=== PATIENT | male | born 1985 | race Hispanic/Latino ===

== ENCOUNTER 2020-01-29 01:39 | Emergency (ER) | payer BC, SELFPAY ==
[2020-01-29] MEDS ORDERED: LIDOCAINE 1% W/EPI 1:100,000 MDV 20 ML VIAL ONE (02:04)
[2020-01-29] MEDS ORDERED: NEOMYCIN/BAC/POLY OPTH 3.5GM ONE (02:04)
--- NOTE | 2020-01-29 03:25 | ER ---
Nurse's Notes [facility] Name: Armand Rizvi Age: 34 yrs Sex: Male : 1985 Arrival Date: 01/29/2020 Time: 01:47 Bed 19 Private MD: Diagnosis: Laceration without foreign body of other part of head-brow Presentation: 01/28 01:48 Chief complaint: EMS states: they were toned out for report of pt with head injury from bb fall with lac to left brow pt unsure is he had LOC. Coronavirus screen: At this time, the client does not indicate any symptoms associated with coronavirus-19. Ebola Screen: No symptoms or risks identified at this time. Initial Sepsis Screen: Does the patient meet any 2 criteria? No. Patient's initial sepsis screen is negative. Does the patient have a suspected source of infection? No. Patient's initial sepsis screen is negative. Risk Assessment: Do you want to hurt yourself or someone else? Patient reports no desire to harm self or others. Onset of symptoms was January 29, 2020. 01:48 Method Of Arrival: EMS: [facility] 01:48 Acuity: IZA 3 bb Historical: - Allergies: 01:51 No Known Allergies; bb - Home Meds: 01:51 None [Active]; bb - PMHx: 01:51 None; bb - PSHx: 01:51 Hernia repair; bb - Immunization history:: Adult Immunizations up to date, Last tetanus immunization: unknown. - Social history:: Smoking status: unknown Patient uses alcohol, occasionally. - Family history:: not pertinent. Screenin:22 Abuse screen: Denies threats or abuse. Denies injuries from another. Nutritional wh screening: No deficits noted. Tuberculosis screening: No symptoms or risk factors identified. Fall Risk None identified. Assessment: 02:21 General: Appears in no apparent distress. well groomed, Behavior is calm, cooperative, wh appropriate for age. General: Smells of alcohol. Pain: Denies pain. Neuro: Level of Consciousness is awake, alert, obeys commands, Oriented to person, place, time, situation, Appropriate for age. Cardiovascular: Capillary refill < 3 seconds. Respiratory: Airway is patent Respiratory effort is even, unlabored, Respiratory pattern is regular, symmetrical. GI: Abdomen is flat, non-distended. : No signs and/or symptoms were reported regarding the genitourinary system. EENT: No signs and/or symptoms were reported regarding the EENT system. Derm: Skin is intact, is healthy with good turgor, Skin is pink, warm \T\ dry. normal. Musculoskeletal: Circulation, motion, and sensation intact. Injury Description: Laceration sustained to middle aspect of left eyebrow is clean, 2.6 to 7.5 cm long. 02:40 Reassessment: Girlfriend notified [place] [employer] for a report. 03:30 Reassessment: Patient appears in no apparent distress at this time. No changes from previously documented assessment. Patient and/or family updated on plan of care and expected duration. Pain level reassessed. Patient is alert, oriented x 3, equal unlabored respirations, skin warm/dry/pink. MD put in DC order prior to suture repair. Vital Signs: 01:48 BP 135 / 94; Pulse 94; Resp 16 S; Temp 98(O); Pulse Ox 97% on R/A; Weight 79.38 kg (R); Height 5 ft. 8 in. (172.72 cm) (R); Pain 3/10; 02:22 BP 127 / 87; Pulse 92; Resp 18; Pulse Ox 99% on R/A; wh 03:45 BP 115 / 64; Pulse 93; Resp 18; Pulse Ox 94% on R/A; 01:48 Body Mass Index 26.61 (79.38 kg, 172.72 cm) Cami Coma Score: 02:11 Eye Response: spontaneous(4). Verbal Response: oriented(5). Motor Response: obeys romel commands(6). Total: 15. 03:21 Eye Response: spontaneous(4). Verbal Response: oriented(5). Motor Response: obeys romel commands(6). Total: 15. ED Course: 01:47 Patient arrived in ED. bb 01:47 Nuria Schilling is Primary Nurse. 01:47 Ryan Aldana MD is Attending Physician. [facility] 01:51 Triage completed. bb 01:51 Arm band placed on Patient placed in an exam room, on a stretcher, on pulse oximetry. bb 02:22 Patient has correct armband on for positive identification. Bed in low position. Call light in reach. Side rails up X 1. Pulse ox on. NIBP on. 02:29 CT Head C Spine In Process Unspecified. EDME 03:24 Indira Echeverria MD is Referral Physician. [facility] 03:54 Assist provider with laceration repair on middle aspect of left eyebrow that was wh between 2.6 to 7.5 cm using sutures. Set up tray. Performed by Ryan Aldana MD. Patient did not have IV access during this emergency room visit. 04:13 Assist provider with laceration repair Dressed with band aid, Patient tolerated well. Administered Medications: 03:50 Drug: Lidocaine-Epinephrine -1%: (1:100,000) 20 ml {Note: Administered by MD.} Volume: 20 ml; Route: Infiltration; 04:12 Follow up: Response: No adverse reaction 04:05 Drug: Neosporin Ointment 1 application Route: Topical; Site: affected area; 04:12 Follow up: Response: No adverse reaction 04:05 Drug: KeFLEX 500 mg Route: PO; 04:12 Follow up: Response: No adverse reaction Outcome: 03:25 Discharge ordered by . [facility] 04:13 Discharged to home ambulatory, with friend. 04:13 Condition: stable 04:13 Discharge instructions given to patient, friend, Instructed on discharge instructions, follow up and referral plans. medication usage, wound care, POC Demonstrated understanding of instructions, follow-up care, medications, wound care, POC Prescriptions given X 1. 04:13 Patient left the ED. Signatures: Dispatcher [employer] [facility] [place] Ryan Aldana MD MD cha Ballard, Brenda, RN RN Nuria Carlson
--- NOTE | 2020-01-29 03:25 | EDPHYS ---
Physician Documentation [facility] Name: Armand Rizvi Age: 34 yrs Sex: Male : 1985 Arrival Date: 01/29/2020 Time: 01:47 Bed 19 Private MD: ED Physician Ryan Aldana HPI: 01/28 02:10 This 34 yrs old Male presents to ER via EMS with complaints of Fall Injury. romel 02:10 Details of fall: The patient fell from an upright position, while walking. Onset: The romel symptoms/episode began/occurred just prior to arrival. 02:11 The patient or guardian reports injury, a laceration, 2.5 cm(s), pain, swelling. The romel complaints affect the left eye. Context of injury: The problem was sustained at a relative's home. Associated signs and symptoms: Loss of consciousness: This patient did not experience any loss of consciousness. Severity of symptoms: At their worst the symptoms were mild, in the emergency department the symptoms are unchanged. The patient has not experienced similar symptoms in the past. Historical: - Allergies: 01:51 No Known Allergies; bb - Home Meds: 01:51 None [Active]; bb - PMHx: 01:51 None; bb - PSHx: 01:51 Hernia repair; bb - Immunization history:: Adult Immunizations up to date, Last tetanus immunization: unknown. - Social history:: Smoking status: unknown Patient uses alcohol, occasionally. - Family history:: not pertinent. ROS: 02:11 Constitutional: Negative for fever, chills, and weight loss, Eyes: Negative for injury, romel pain, redness, and discharge, ENT: Negative for injury, pain, and discharge, Neck: Negative for injury, pain, and swelling, Cardiovascular: Negative for chest pain, palpitations, and edema, Respiratory: Negative for shortness of breath, cough, wheezing, and pleuritic chest pain, Abdomen/GI: Negative for abdominal pain, nausea, vomiting, diarrhea, and constipation, Back: Negative for injury and pain, : Negative for injury, bleeding, discharge, and swelling, Skin: Negative for injury, rash, and discoloration, Neuro: Negative for headache, weakness, numbness, tingling, and seizure, Psych: Negative for depression, anxiety, suicide ideation, homicidal ideation, and hallucinations, Allergy/Immunology: Negative for hives, rash, and allergies, Endocrine: Negative for neck swelling, polydipsia, polyuria, polyphagia, and marked weight changes, Hematologic/Lymphatic: Negative for swollen nodes, abnormal bleeding, and unusual bruising. 02:11 MS/extremity: Positive for laceration, pain, of the inner aspect of left eyebrow and middle aspect of left eyebrow. Exam: 02:11 Constitutional: This is a well developed, well nourished patient who is awake, alert, romel and in no acute distress. Eyes: Pupils equal round and reactive to light, extra-ocular motions intact. Lids and lashes normal. Conjunctiva and sclera are non-icteric and not injected. Cornea within normal limits. Periorbital areas with no swelling, redness, or edema. ENT: Nares patent. No nasal discharge, no septal abnormalities noted. Tympanic membranes are normal and external auditory canals are clear. Oropharynx with no redness, swelling, or masses, exudates, or evidence of obstruction, uvula midline. Mucous membranes moist. Neck: Trachea midline, no thyromegaly or masses palpated, and no cervical lymphadenopathy. Supple, full range of motion without nuchal rigidity, or vertebral point tenderness. No Meningismus. Chest/axilla: Normal chest wall appearance and motion. Nontender with no deformity. No lesions are appreciated. Cardiovascular: Regular rate and rhythm with a normal S1 and S2. No gallops, murmurs, or rubs. Normal PMI, no JVD. No pulse deficits. Respiratory: Lungs have equal breath sounds bilaterally, clear to auscultation and percussion. No rales, rhonchi or wheezes noted. No increased work of breathing, no retractions or nasal flaring. Abdomen/GI: Soft, non-tender, with normal bowel sounds. No distension or tympany. No guarding or rebound. No evidence of tenderness throughout. Back: No spinal tenderness. No costovertebral tenderness. Full range of motion. Skin: Warm, dry with normal turgor. Normal color with no rashes, no lesions, and no evidence of cellulitis. MS/ Extremity: Pulses equal, no cyanosis. Neurovascular intact. Full, normal range of motion. Neuro: Awake and alert, GCS 15, oriented to person, place, time, and situation. Cranial nerves II-XII grossly intact. Motor strength 5/5 in all extremities. Sensory grossly intact. Cerebellar exam normal. Normal gait. Psych: Awake, alert, with orientation to person, place and time. Behavior, mood, and affect are within normal limits. 02:11 Head/face: Noted is a laceration(s), that is deep, 2.5 cm(s). Vital Signs: 01:48 BP 135 / 94; Pulse 94; Resp 16 S; Temp 98(O); Pulse Ox 97% on R/A; Weight 79.38 kg (R); bb Height 5 ft. 8 in. (172.72 cm) (R); Pain 3/10; 02:22 BP 127 / 87; Pulse 92; Resp 18; Pulse Ox 99% on R/A; wh 03:45 BP 115 / 64; Pulse 93; Resp 18; Pulse Ox 94% on R/A; wh 01:48 Body Mass Index 26.61 (79.38 kg, 172.72 cm) bb Anita Coma Score: 02:11 Eye Response: spontaneous(4). Verbal Response: oriented(5). Motor Response: obeys [facility] commands(6). Total: 15. 03:21 Eye Response: spontaneous(4). Verbal Response: oriented(5). Motor Response: obeys romel commands(6). Total: 15. Laceration: 03:21 Wound Repair of 2.5cm ( 1.0in ) subcutaneous laceration to middle aspect of left romel eyebrow. Skin/tissue flap noted.. Distal neuro/vascular/tendon intact. Anesthesia: Local anesthetic administered with 6 mls of 1% lidocaine w/ Epi. Wound prep: Simple cleansing by mi. Skin closed with 3 5-0 Prolene using interrupted sutures and sterile technique. Subcutaneous tissue closed with 2 5-0 Vicryl using interrupted sutures and sterile technique. Dressed with Neosporin. Patient tolerated well. MDM: 01:48 Patient medically screened. [facility] 03:21 Differential diagnosis: Contusion of Hematoma on Laceration of Intracranial bleed- romel Concussion. Data reviewed: vital signs, nurses notes, radiologic studies, CT scan. Data interpreted: cardiac monitor: rate is 92 beats/min, rhythm is regular, Pulse oximetry: on room air is 99 %. Counseling: I had a detailed discussion with the patient and/or guardian regarding: the historical points, exam findings, and any diagnostic results supporting the discharge/admit diagnosis, radiology results, the need for outpatient follow up, for definitive care, an ENT specialist. 01/28 01:49 Order name: CT Head C Spine [facility] 01/28 01:49 Order name: Prolene, Sutures; Complete Time: 03:54 [facility] 01/28 01:49 Order name: Dressing - Wound; Complete Time: 03:54 [facility] 01/28 01:49 Order name: Gloves, Sterile; Complete Time: :49 [facility] 01/28 01:49 Order name: Setup Suture Tray; Complete Time: :49 [facility] Administered Medications: 03:50 Drug: Lidocaine-Epinephrine -1%: (1:100,000) 20 ml {Note: Administered by MD.} Volume: wh 20 ml; Route: Infiltration; 04:12 Follow up: Response: No adverse reaction 04:05 Drug: Neosporin Ointment 1 application Route: Topical; Site: affected area; 04:12 Follow up: Response: No adverse reaction 04:05 Drug: KeFLEX 500 mg Route: PO; 04:12 Follow up: Response: No adverse reaction Disposition: 01/29/20 03:25 Discharged to Home. Impression: Laceration without foreign body of other part of head - brow. - Condition is Stable. - Discharge Instructions: Facial Laceration, Facial Laceration, [id number]. - Prescriptions for Keflex 500 mg Oral Capsule - take 1 capsule by ORAL route every 6 hours for 10 days; 40 capsule. - Medication Reconciliation Form, Thank You Letter, Antibiotic Education, Prescription Opioid Use form. - Follow up: Private Physician; When: 2 - 3 days; Reason: Recheck today's complaints, Continuance of care, Re-evaluation by your physician. Follow up: Indira Echeverria MD; When: 2 - 3 days; Reason: Recheck today's complaints, Continuance of care, Re-evaluation by your physician. - Problem is new. - Symptoms have improved. Signatures: Dispatcher [employer] Ryan Brunson MD MD cha Ballard, Brenda, RN RN Nuria Carlson Corrections: (The following items were deleted from the chart) 04:13 03:25 01/29/2020 03:25 Discharged to Home. Impression: Laceration without foreign body wh of other part of head - brow. Condition is Stable. Forms are Medication Reconciliation Form, Thank You Letter, Antibiotic Education, Prescription Opioid Use. Follow up: Private Physician; When: 2 - 3 days; Reason: Recheck today's complaints, Continuance of care, Re-evaluation by your physician. Follow up: Indira Echeverria; When: 2 - 3 days; Reason: Recheck today's complaints, Continuance of care, Re-evaluation by your physician. Problem is new. Symptoms have improved. romel
[2020-01-29] MEDS ORDERED: CEPHALEXIN 250 MG CAP ONE (04:16)
[2020-01-29 04:20] VITALS: TEMP 98
[2020-01-29 04:23] VITALS: BP 115/64; O2SAT 94
--- NOTE | 2020-02-01 12:40 | RAD REPORT ---
EXAM DESCRIPTION: CT - Head C Spine Mpr Wo Con - 01/29/2020 6:50 am CLINICAL HISTORY: 34-year-old male status post fall with laceration to left brow TECHNIQUE: Multiple axial CT images of the brain and cervical spine were performed followed by sagit debra and coronal reconstructed images. The CT study is performed according to ALARA (as low as reasona chencho achievable) or ALARA/IMAGE GENTLY, with automatic adjustment of mA and/or kV according to patient size. Performed on: 01/29/2020 at 2:12 AM COMPARISON: No prior studies were available for comparison.. FINDINGS: CT HEAD: There is no evidence of mass, acute mass effect or midline shift. There are no acute extra-axial flui d collections. There is no evidence of acute intracranial hemorrhage. The cerebral sulci and ventricles are normal in size and configuration. There are no focal abnormal areas of increased or decreased attenuation. There is mild mucosal thickening of the paranasal sinuses. The mastoid air cells are clear. The orbital contents are grossly unremarkable. No acute osseous abnormalities are identified. There is mild left supraorbital scalp soft tissue swelling and laceration. There also appears to be v karly mild right parietal scalp soft tissue swelling. CT CERVICAL SPINE: The cervical vertebrae are normal in height. There is slight straightening of the normal cervical jimi dosis. The disc spaces are well preserved in height. Bone mineralization is normal. The atlanto- axial articulation is preserved and the odontoid process is intact. There is a well-corticated osseou s fragment adjacent to the tip of the C7 spinous process likely representing an unfused apophysis. There is normal alignment of the facet joints on the parasagittal images. There are no significant de generative changes of the cervical spine. There is no evidence of acute fracture or subluxation. There is no significant canal stenosis. Ther e is no significant neural foraminal stenosis. The paravertebral and paraspinal soft tissues are un remarkable. IMPRESSION: CT HEAD: 1. There is no evidence of acute intracranial pathology. 2. Mild mucosal thickening of the paranasal sinuses. 3. Mild left supraorbital scalp soft tissue swelling and laceration. There also appears to be very mi ld right parietal scalp soft tissue swelling. CT CERVICAL SPINE: 1. No evidence of acute cervical spine injury. 2. Slight straightening of the normal cervical lordosis. Electronically signed by: Itzel Vanegas DO 01/29/2020 2:49 AM CDT Due to temporary technical issues with the PACS/Fluency reporting system, reports are being signed by the in house radiologist without review as a courtesy to ensure prompt reporting. The interpreting r adiologist is fully responsible for the content of the report.
== END 2020-01-29 04:13 | disposition home or self-care (01) ==
LOC: ER 01:39
PROC: 0JQ10ZZ Repair Face Subcutaneous Tissue and Fascia, Open Approach (ICD-10-PCS; principal; 2020-01-29)
DX: S01.112A Laceration without foreign body of left eyelid and periocular area, initial encounter (principal); W19.XXXA Unspecified fall, initial encounter; Y93.01 Activity, walking, marching and hiking; Y92.89 Other specified places as the place of occurrence of the external cause
CPT/HCPCS: 70450; 72125; 99284